=== PATIENT | female | born 1990 | race Caucasian/White ===

== ENCOUNTER 2022-05-11 21:08 | Inpatient (IN) | payer BC ==
[2022-05-11 21:30] VITALS: BMI 33.8
[2022-05-11] MEDS ORDERED: hydrALAZINE 20 MG/ML VIAL SLOW IVP PRN (21:45)
[2022-05-11 22:27] LABS: #Monocytes 1.3 10x3/uL (0.0-1.1); #Neutrophils 15.4 10x3/uL (1.5-8.4); %Basophils 0.1 % (0.0-2.0); %Eosinophils 0.1 % (0.0-6.0); %Lymphocytes 3.5 % (18.0-47.0); %Monocytes 7.3 % (0.0-10.0); %Neutrophils 88.5 % (40.0-75.0); Bilirubin Neg (Negative); Blood, Urine Negative (Negative); Glucose, Urine (Dipstick) Normal (Negative); Hemoglobin 12.5 g/dL (12.0-15.5); Ketone, Urine Negative (Negative); Leukocyte Negative (Negative); Mean Corpuscular HGB CONC 34.7 g/dL (32.0-36.0); Mean Corpuscular Volume 86.5 fl (81.6-98.3); Mean Platelet Volume 10.6 fl (7.4-10.4); Nitrite Negative (Negative); Platelet Count 197 10x3/uL (150-450); Protein, Urine (Dipstick) Negative (Neg-Trace); RBC Distribution Width 13.2 % (11.5-14.5); Red Blood Cell (RBC) Count 4.16 10x6/uL (3.90-5.03); Specific Gravity, Urine 1.015 (1.005-1.030); Urobilinogen Normal mg/dL (Less than 2); White Blood Cell (WBC) Count 17.4 10x3/uL (3.5-10.5)
[2022-05-11 22:28] LABS: Clarity Clear (Clear)
[2022-05-11 22:33] LABS: Bacteria/HPF None Seen HPF (None Seen); CAUTI Indications for Culture Dysuria,urgency,freq; RBC/HPF None Seen HPF (0-3); Squamous Epithelial None Seen HPF (0-3); WBC/HPF None Seen HPF (0-3)
[2022-05-11 22:34] LABS: Urine Culture Reflex No No
[2022-05-11 22:48] LABS: ALT (SGPT) 8 U/L (8-55); AST (SGOT) 14 U/L (5-34); Albumin 3.6 g/dL (3.5-5.0); Alkaline Phosphatase 107 U/L (40-110); Anion Gap 16 mmol/L (10-20); BUN (Urea Nitrogen) 11 mg/dL (7.0-18.7); Bilirubin, Total 0.4 mg/dL (0.2-1.2); Calc. Creatinine Clearance 177 mL/min (70-130); Calcium 9.4 mg/dL (7.8-10.44); Carbon Dioxide 18 mmol/L (22-29); Chloride 106 mmol/L (98-107); Estimated GFR 123; Fetal Membranes Rupture No Membranes Rupture (No Rupture); Globulin 2.6 g/dL (2.4-3.5); Glucose 103 mg/dL (70-105); Potassium 3.7 mmol/L (3.5-5.1); Protein, Total 6.2 g/dL (6.0-8.3); Sodium 136 mmol/L (136-145)
[2022-05-11] MEDS ORDERED: Acetaminophen 325 MG TAB PO SCH (23:30)
[2022-05-12] MEDS ORDERED: hydrALAZINE 20 MG/ML VIAL SLOW IVP PRN ×2 (00:13→04:52)
[2022-05-12] MEDS ORDERED: Butorphanol Tartrate 1 MG/ML VIAL SLOW IVP PRN ×2 (00:13→15:30)
[2022-05-12] MEDS ORDERED: Ondansetron PF 4 MG/2 ML Vial IVP PRN ×3 (00:13→04:52)
[2022-05-12] MEDS ORDERED: Acetaminophen 500 MG TAB PO PRN ×2 (00:13→04:29)
[2022-05-12] MEDS ORDERED: Promethazine HCl 25 MG/ML VIAL IM PRN ×3 (00:13→04:52)
[2022-05-12] MEDS ORDERED: NS w/ Oxytocin 30 units 500 ML IV SCH ×2 (00:15→04:52)
[2022-05-12] MEDS: Ampicillin 2 GM in Sodium Chloride 0.9% 100 ML IVPB SCH ×5 (00:37→23:33)
[2022-05-12] MEDS: Lactated Ringer's 1,000 ML IV SCH ×3 (00:38→06:49)
[2022-05-12 01:09] LABS: SARS-CoV-2 NAA Rapid Test Not Detected (NotDetected)
[2022-05-12] MEDS ORDERED: Methylergonovine 0.2 MG/ML VIAL IM PRN ×2 (01:19→04:52)
[2022-05-12] MEDS ORDERED: Famotidine/PF 20 mg/2ml Vial SLOW IVP PRN (01:19)
[2022-05-12] MEDS ORDERED: Bicitra 30 ML UDCUP PO PRN (01:19)
[2022-05-12] MEDS ORDERED: Carboprost 250 MCG/ML AMP IM PRN (01:19)
[2022-05-12] MEDS ORDERED: Misoprostol 200 MCG TAB PR PRN ×2 (01:19→04:52)
[2022-05-12] MEDS ORDERED: CEFAZOLIN 2 GM in Sodium Chloride 0.9% 100 ML IVPB SCH (01:30)
[2022-05-12] MEDS ORDERED: Azithromycin 500 MG in Sodium Chloride 0.9% 250 ML 250 ML IVPB SCH (01:30)
[2022-05-12] MEDS ORDERED: Methylergonovine 0.2 MG/ML VIAL ONE (01:50)
[2022-05-12] MEDS ORDERED: Carboprost 250 MCG/ML AMP ONE (01:51)
[2022-05-12] MEDS ORDERED: Fentanyl 100 MCG/2 ML VIAL ONE ×2 (01:53→04:04)
[2022-05-12] MEDS ORDERED: Succinylcholine 200 MG/10 ml SYRINGE FS ONE (01:53)
[2022-05-12] MEDS ORDERED: PROPOFOL 20 ML ONE (01:53)
[2022-05-12] MEDS ORDERED: Morphine PF 10 MG/10 ML VIAL ONE (02:06)
[2022-05-12 02:11] LABS: HBSAg Index 0.34 S/CO (0-0.99); Hep B Surf Ag Non-Reactive S/CO (NonReactive); Syphilis Antibody Nonreactive (Nonreactive); Syphilis Antibody Index 0.04 S/CO (<1.00 Non-Reactive)
[2022-05-12] MEDS ORDERED: CEFAZOLIN 1 GM VIAL ONE ×2 (02:19)
[2022-05-12] MEDS ORDERED: Oxytocin 10 UNITS/ML VIAL ONE ×2 (02:25→02:48)
[2022-05-12 02:57] LABS: Critical Notified By: BG; Critical Notified Whom: TG4 RN; RapidComm Collect By TG4
[2022-05-12 02:59] LABS: Critical Notified By: BG; Critical Notified Whom: TG4 RN; RapidComm Collect By TG4; pH (Cord, venous) 7.295 (7.250-7.350)
[2022-05-12] MEDS ORDERED: Meperidine HCl/PF 25 MG/ML VIAL ONE (03:04)
[2022-05-12] MEDS ORDERED: Ondansetron PF 4 MG/2 ML Vial ONE (03:08)
[2022-05-12] MEDS ORDERED: Fentanyl 100 MCG/2 ML VIAL SLOW IVP PRN (03:21)
[2022-05-12] MEDS ORDERED: HYDROmorphone 2 MG/ML VIAL SLOW IVP PRN (03:21)
[2022-05-12] MEDS ORDERED: Ondansetron HCl/PF 4 MG/2 ML Vial IVP PRN (03:21)
[2022-05-12] MEDS ORDERED: Naloxone HCl 0.4 mg/ml Vial IVP PRN ×2 (03:21)
[2022-05-12] MEDS ORDERED: diphenhydrAMINE 50 MG/ML VIAL IVP PRN (03:21)
[2022-05-12] MEDS ORDERED: Meperidine HCl/PF 25 MG/ML VIAL SLOW IVP PRN (03:21)
[2022-05-12] MEDS ORDERED: Promethazine HCl 25 MG SUPP PR PRN (03:21)
[2022-05-12] MEDS ORDERED: Naloxone HCl 0.4 mg/ml Vial IV PRN (03:21)
[2022-05-12] MEDS ORDERED: Moisturizing Cream (Eucerin) 113 GM JAR TOP PRN (03:21)
[2022-05-12] MEDS ORDERED: Ketorolac Tromethamine 30 MG/ML VIAL IVP SCH (03:30)
[2022-05-12] MEDS ORDERED: Communication Order-Pharmacy FS SCH (03:30)
[2022-05-12] MEDS: Ketorolac Tromethamine 30 MG/ML VIAL IVP PRN ×3 (04:39→20:42)
[2022-05-12] MEDS ORDERED: Acetaminophen 325 MG TAB PO PRN (04:52)
[2022-05-12] MEDS ORDERED: Boostrix 0.5 ML (Tdap) VIAL (>/=7 yrs of age) IM ONE (04:52)
[2022-05-12] MEDS: Ibuprofen 800 MG TAB PO SCH ×3 (07:19→20:56)
[2022-05-12] MEDS ORDERED: Docusate 100 MG CAP PO SCH (12:15)
[2022-05-12] MEDS: Ferrous Sulfate 325 MG TAB PO SCH ×2 (15:09→20:42)
[2022-05-12] MEDS: Prenatal Vitamin 1 TAB PO SCH (15:09)
[2022-05-12] MEDS: HYDROcodone/Acetaminophen 5/325 mg Tablet PO PRN ×2 (15:57→23:32)
[2022-05-12 16:24] LABS: Chlamydia by PCR Not Detected (NotDetected); GC by PCR Not Detected (NotDetected)
[2022-05-12 17:08] LABS: Hemoglobin 8.5 g/dL (12.0-15.5)
[2022-05-12] MEDS: Simethicone Chewable 80 MG TAB PO PRN (17:25)
[2022-05-12] MEDS: Docusate 100 MG CAP PO SCH (20:57)
[2022-05-13 03:36] LABS: Hemoglobin 8.5 g/dL (12.0-15.5); Mean Corpuscular HGB CONC 34.3 g/dL (32.0-36.0); Mean Corpuscular Hemoglobin 30.4 pg (27.0-33.0); Mean Corpuscular Volume 88.6 fl (81.6-98.3); Mean Platelet Volume 11.2 fl (7.4-10.4); Platelet Count 135 10x3/uL (150-450); RBC Distribution Width 13.8 % (11.5-14.5)
[2022-05-13] MEDS: HYDROcodone/Acetaminophen 5/325 mg Tablet PO PRN ×5 (03:39→19:54)
[2022-05-13] MEDS: Ibuprofen 800 MG TAB PO SCH ×3 (05:28→21:02)
[2022-05-13] MEDS: Ampicillin 2 GM in Sodium Chloride 0.9% 100 ML IVPB SCH ×2 (05:29→12:59)
[2022-05-13] MEDS: Prenatal Vitamin 1 TAB PO SCH (08:29)
[2022-05-13] MEDS: Docusate 100 MG CAP PO SCH ×2 (08:30→21:02)
[2022-05-13] MEDS: Ferrous Sulfate 325 MG TAB PO SCH ×2 (08:30→21:02)
[2022-05-13] MEDS: Simethicone Chewable 80 MG TAB PO PRN ×3 (13:16→21:01)
[2022-05-14] MEDS: HYDROcodone/Acetaminophen 5/325 mg Tablet PO PRN ×6 (00:16→22:33)
[2022-05-14] MEDS: Ibuprofen 800 MG TAB PO SCH ×3 (04:56→21:21)
[2022-05-14] MEDS: Simethicone Chewable 80 MG TAB PO PRN ×2 (04:57→21:21)
[2022-05-14] MEDS: Ferrous Sulfate 325 MG TAB PO SCH ×2 (09:02→21:21)
[2022-05-14] MEDS: Docusate 100 MG CAP PO SCH ×2 (09:03→21:21)
[2022-05-14] MEDS: Prenatal Vitamin 1 TAB PO SCH (09:03)
[2022-05-14] MEDS ORDERED: hydrOXYzine 25 MG TAB PO PRN (22:12)
[2022-05-14] MEDS ORDERED: Labetalol HCl 100 MG TAB PO SCH (22:15)
[2022-05-14] MEDS ORDERED: hydrOXYzine 25 MG TAB PO SCH (22:15)
[2022-05-14] MEDS ORDERED: Acetaminophen 500 MG TAB PO SCH (23:00)
[2022-05-15] MEDS: Ibuprofen 800 MG TAB PO SCH (06:00)
[2022-05-15] MEDS: Simethicone Chewable 80 MG TAB PO PRN (06:00)
[2022-05-15] MEDS: HYDROcodone/Acetaminophen 5/325 mg Tablet PO PRN (06:01)
[2022-05-15] MEDS: Ferrous Sulfate 325 MG TAB PO SCH (08:42)
[2022-05-15] MEDS: Prenatal Vitamin 1 TAB PO SCH (08:42)
[2022-05-15] MEDS: Docusate 100 MG CAP PO SCH (08:43)
[2022-05-15] MEDS ORDERED: Labetalol HCl 100 MG TAB PO SCH (09:00)
[2022-05-15 09:52] LABS: Creatinine, Urine 95.25 mg/dL (47-110)
[2022-05-15 11:28] VITALS: BP 110/67; TEMP 98.6
== END 2022-05-15 12:15 | disposition home or self-care (01) | DRG 786 ==
LOC: CSHLD/OP 21:08 → CSHLD 05-12 00:13 → CSHPP 05-12 05:35
PROVIDERS: ADMIT Obstetrics & Gynecology; ATTEND Obstetrics & Gynecology
PROC: 10D00Z1 Extraction of Products of Conception, Low, Open Approach (ICD-10-PCS; principal; 2022-05-12)
DX: O75.3 Other infection during labor (principal); A41.9 Sepsis, unspecified organism; O72.1 Other immediate postpartum hemorrhage; Z3A.37 37 weeks gestation of pregnancy; Z37.0 Single live birth; Z20.822 Contact with and (suspected) exposure to COVID-19; O76 Abnormality in fetal heart rate and rhythm complicating labor and delivery; O34.211 Maternal care for low transverse scar from previous cesarean delivery; Z79.82 Long term (current) use of aspirin; O13.5 Gestational [pregnancy-induced] hypertension without significant proteinuria, complicating the puerperium; F41.9 Anxiety disorder, unspecified; O99.345 Other mental disorders complicating the puerperium; Z90.49 Acquired absence of other specified parts of digestive tract
CPT/HCPCS: 36415; 51702; 71045; 80053; 81001; 82570; 82805; 84112; 84145; 84156; 85014; 85018; 85025; 85027; 86780; 86850; 86900; 86901; 87040; 87070; 87205; 87340; 87480; 87491; 87510; 87591; 87660; 88307; 99285; J0290; J0690; J1580; J1885; J2175; J2274; J2405; J2590; J2704; J3010; J3490; J7120